=== PATIENT | female | born 1940 | race Caucasian/White ===

== ENCOUNTER → 2017-01-29 | Outpatient (REF) | payer OTHER ==
[2017-01-29 12:42] LABS: MEAN CORPUSCULAR HGB CONC 32.5 g/dl (32.0-36.5); MEAN CORPUSCULAR VOLUME 95.2 fl (80.0-96.0); RED CELL DISTRIBUTION WIDTH 13.1 % (11.5-14.5); RETICULOCYTE % ADVIA2120 1.5 % (0.5-1.5); WHITE BLOOD COUNT 7.2 K/mm3 (4.0-10.0)
[2017-01-29 13:04] LABS: FOLATE 20.4 NG/ML (>5.4)
[2017-01-29 13:10] LABS: ALBUMIN 3.4 GM/DL (3.2-5.2); BILIRUBIN,TOTAL 0.4 MG/DL (0.2-1.0); CALCIUM LEVEL 8.7 MG/DL (8.8-10.2); CREATININE FOR GFR 1.52 MG/DL (0.55-1.02); GLOMERULAR FILTRATION RATE 35.2 (>39); PERCENT SATURATION 20.4 % (13.2-37.4); POTASSIUM SERUM 4.4 MEQ/L (3.5-5.1); TOTAL PROTEIN 6.8 GM/DL (6.4-8.2)
== END ==
LOC: M SFHCADAM 09:45
PROVIDERS: ATTEND Physician Assistant
DX: E11.29 Type 2 diabetes mellitus with other diabetic kidney complication (principal); D63.1 Anemia in chronic kidney disease; R80.9 Proteinuria, unspecified; E55.9 Vitamin D deficiency, unspecified; N18.9 Chronic kidney disease, unspecified

== ENCOUNTER → 2017-02-28 | Outpatient (REF) | payer OTHER ==
[2017-02-28 13:44] LABS: CALCIUM LEVEL 8.9 MG/DL (8.8-10.2); CREATININE FOR GFR 1.33 MG/DL (0.55-1.02); GLOMERULAR FILTRATION RATE 41.1 (>39); POTASSIUM SERUM 4.4 MEQ/L (3.5-5.1)
== END ==
LOC: M SFHCADAM 09:43
PROVIDERS: ATTEND Physician Assistant
DX: N18.3 Chronic kidney disease, stage 3 (moderate) (principal); E53.8 Deficiency of other specified B group vitamins
CPT/HCPCS: 80048; 86256; 96372; J3420

== ENCOUNTER → 2017-04-11 | Outpatient (REF) | payer OTHER | LOC: M LAB REF 17:03 | PROVIDERS: ATTEND Internal Medicine Nephrology | DX: N18.3 Chronic kidney disease, stage 3 (moderate) (principal); E11.22 Type 2 diabetes mellitus with diabetic chronic kidney disease ==

== ENCOUNTER → 2017-04-16 | Outpatient (CLI) | payer OTHER ==
--- NOTE | 2017-04-17 08:03 | REP ---
Clinical: Hematuria. Technique: Transabdominal ultrasound examination using curved array transducer. Findings: The bladder is normal in appearance. No wall thickening or mass lesion identified. Prevoid bladder measures 5.8 x 6.2 x 4.8 cm (113 ml). Postvoid bladder measures 3.5 x 5.5 x 2.2 cm (28 ml). Postvoid residual equals 25%. Impression: 1. Normal appearance of the bladder. 2. Increased postvoid residual volume noted. Signed by Justin Cisneros MD 04/17/2017 07:55 A
== END ==
LOC: M RAD 13:55
PROVIDERS: ATTEND Internal Medicine Nephrology
DX: R31.29 Other microscopic hematuria (principal)

== ENCOUNTER → 2017-05-06 | Outpatient (CLI) | payer OTHER ==
--- NOTE | 2017-05-06 14:18 | REP ---
RENAL ULTRASOUND: Real-time sonographic evaluation of kidneys performed. Both kidneys appear somewhat increased in echotexture suggesting medical renal disease. Right kidney measures 10.8 x 4.7 x 5.1 cm and left kidney 10.8 x 4.2 x 4.3 cm. There is no hydronephrosis bilaterally. A 1.5 cm cortical calcification is seen in the upper pole of the left kidney. A cyst in the mid left kidney measures 1.8 x 1.9 x 1.2 cm and a cyst in the lower pole of the left kidney measures 1.7 x 2.3 x 1.3 cm. A cyst in the lower pole of the right kidney measures 1.8 x 2.1 x 1.9 cm. Urinary bladder is not well distended and not well evaluated. IMPRESSION: Increased echotexture of the kidneys suggests medical renal disease. No hydronephrosis. Bilateral renal cysts. Cortical calcification upper pole left kidney. Signed by Kendall Barker MD 05/06/2017 04:45 P
== END ==
LOC: M RAD 12:09
PROVIDERS: ATTEND Internal Medicine Nephrology
DX: I10 Essential (primary) hypertension (principal); E11.22 Type 2 diabetes mellitus with diabetic chronic kidney disease; N28.1 Cyst of kidney, acquired; N28.89 Other specified disorders of kidney and ureter

== ENCOUNTER → 2017-06-04 | Outpatient (REF) | payer OTHER ==
[2017-06-04 14:09] LABS: MEAN CORPUSCULAR HEMOGLOBIN 32.6 pg (27.0-33.0); MEAN CORPUSCULAR HGB CONC 35.2 g/dl (32.0-36.5); MEAN CORPUSCULAR VOLUME 92.6 fl (80.0-96.0); RED CELL DISTRIBUTION WIDTH 12.8 % (11.5-14.5); WHITE BLOOD COUNT 7.7 K/mm3 (4.0-10.0)
[2017-06-04 20:45] LABS: FOLATE 13.6 NG/ML
[2017-06-04 20:54] LABS: CALCIUM LEVEL 8.7 MG/DL (8.8-10.2); CREATININE FOR GFR 1.46 MG/DL (0.55-1.02); FREE T4 1.19 NG/DL (0.76-1.46); GLOMERULAR FILTRATION RATE 36.9 (>39); POTASSIUM SERUM 4.3 MEQ/L (3.5-5.1)
== END ==
LOC: M SFHCPLAZ 09:45
PROVIDERS: ATTEND Physician Assistant
DX: N18.9 Chronic kidney disease, unspecified (principal); E53.8 Deficiency of other specified B group vitamins; E03.9 Hypothyroidism, unspecified

== ENCOUNTER → 2017-06-13 | Outpatient (REF) | payer OTHER | LOC: M LAB REF 16:41 | PROVIDERS: ATTEND Internal Medicine Nephrology | DX: N18.3 Chronic kidney disease, stage 3 (moderate) (principal); R31.29 Other microscopic hematuria ==

== ENCOUNTER → 2017-07-07 | Outpatient (REF) | payer OTHER | LOC: M SMT 16:53 | PROVIDERS: ATTEND Nurse Practitioner Women's Health | DX: R31.29 Other microscopic hematuria (principal) | CPT/HCPCS: 81001; 87088; 87186; 88108; G0463 ==

== ENCOUNTER → 2017-07-25 | Outpatient (REF) | payer OTHER | LOC: M SMT 17:05 | PROVIDERS: ATTEND Nurse Practitioner Women's Health | DX: N39.0 Urinary tract infection, site not specified (principal) ==

== ENCOUNTER → 2018-01-27 | Outpatient (REF) | payer OTHER ==
[2018-01-27 19:43] LABS: TOTAL PROTEIN,RANDOM URINE 48.4 MG/DL (0.0-12.0)
[2018-01-27 19:43] LABS: CREATININE,RANDOM URINE 58.1 MG/DL
[2018-01-27 20:03] LABS: FERRITIN 134 NG/ML (8-252); IRON (FE) 70 UG/DL (50-170); PERCENT SATURATION 19.8 % (13.2-45.0); TOTAL IRON BINDING CAPACITY 353 UG/DL (250-450)
== END ==
LOC: M LAB REF 16:53
DX: N18.3 Chronic kidney disease, stage 3 (moderate) (principal); R80.9 Proteinuria, unspecified; D64.9 Anemia, unspecified
CPT/HCPCS: 83550

== ENCOUNTER → 2018-06-10 | Outpatient (REF) | payer OTHER ==
[2018-06-10 20:15] LABS: CHOLESTEROL LEVEL 171 MG/DL (<200); CHOLESTEROL RISK RATIO 3.226 (<5); HDL CHOLESTEROL 53 MG/DL (>40); LDL CHOLESTEROL 63 MG/DL (<100); NON-HDL-C 118 MG/DL; TRIGLYCERIDES LEVEL 276 MG/DL (<150)
[2018-06-10 20:19] LABS: FOLATE 16.2 NG/ML
== END ==
LOC: M SFHCADAM 13:47
DX: E03.9 Hypothyroidism, unspecified (principal); E11.29 Type 2 diabetes mellitus with other diabetic kidney complication; E53.8 Deficiency of other specified B group vitamins
CPT/HCPCS: 82746

== ENCOUNTER → 2018-07-07 | Outpatient (REF) | payer OTHER ==
[2018-07-07 22:50] LABS: CREATININE,RANDOM URINE 55.7 MG/DL
== END ==
LOC: M LAB REF 17:05
DX: N18.3 Chronic kidney disease, stage 3 (moderate) (principal); R80.9 Proteinuria, unspecified
CPT/HCPCS: 82570

== ENCOUNTER → 2018-08-12 | Outpatient (REF) | payer OTHER ==
[2018-08-12 19:23] LABS: FREE T4 1.07 NG/DL (0.76-1.46); THYROID STIMULATING HORMONE 2.96 uIU/ML (0.358-3.740)
== END ==
LOC: M SFHCADAM 11:18
PROVIDERS: ATTEND Physician Assistant
DX: E03.9 Hypothyroidism, unspecified (principal)

== ENCOUNTER → 2018-09-11 | Outpatient (REF) | payer OTHER ==
[2018-09-11 20:12] LABS: HEMOGLOBIN A1c 7.6 %
== END ==
LOC: M SFHCADAM 13:24
PROVIDERS: ATTEND Physician Assistant
DX: I11.9 Hypertensive heart disease without heart failure (principal); I13.10 Hypertensive heart and chronic kidney disease without heart failure, with stage 1 through stage 4 chronic kidney disease, or unspecified chronic kidney disease; N18.3 Chronic kidney disease, stage 3 (moderate); D63.1 Anemia in chronic kidney disease; E03.9 Hypothyroidism, unspecified; E11.29 Type 2 diabetes mellitus with other diabetic kidney complication
CPT/HCPCS: 83036; G0463

== ENCOUNTER → 2019-06-01 | Outpatient (REF) | payer MEDICARE, OTHER ==
[2019-06-01 20:33] LABS: CHOLESTEROL RISK RATIO 3.392 (<5); FREE T4 1.09 NG/DL (0.76-1.46); THYROID STIMULATING HORMONE 5.48 uIU/ML (0.358-3.740)
[2019-06-01 21:44] LABS: HEMOGLOBIN A1c 7.8 %
== END ==
LOC: M SFHCADAM 13:55
PROVIDERS: ATTEND Physician Assistant
DX: I11.9 Hypertensive heart disease without heart failure (principal); E11.29 Type 2 diabetes mellitus with other diabetic kidney complication; N18.3 Chronic kidney disease, stage 3 (moderate); E03.9 Hypothyroidism, unspecified

== ENCOUNTER → 2019-11-23 | Outpatient (CLI) | payer MEDICARE ==
--- NOTE | 2019-11-24 05:21 | REP ---
Clinical: Heart disease. Technique: PA and lateral. Comparison: 11/09/2014. Findings: Cardiomegaly is suggested. Lung mendoza demonstrate diffuse increased interstitial markings which are likely chronic in nature. No discrete focal consolidation or obvious effusion. No pneumothorax. Skeletal structures intact. Impression: Chronic-appearing changes. If the patient remains symptomatic consider chest CT for further investigation. Electronically Signed by Justin Cisneros MD 11/24/2019 05:13 A
== END ==
LOC: M ADAMS 12:00
PROVIDERS: ATTEND Physician Assistant
DX: I11.9 Hypertensive heart disease without heart failure (principal); N18.3 Chronic kidney disease, stage 3 (moderate); E11.29 Type 2 diabetes mellitus with other diabetic kidney complication; R22.31 Localized swelling, mass and lump, right upper limb
CPT/HCPCS: 71046; 80053; 81001; 83036; 83880; 84439; 84443; 85027; 85379; G0463

== ENCOUNTER → 2019-11-23 | Outpatient (REF) | payer MEDICARE ==
[2019-11-23 14:04] LABS: APPEARANCE, URINE CLOUDY (CLEAR); BACTERIA, URINE AUTO 3+ (NEGATIVE); BILIRUBIN, URINE AUTO NEGATIVE (NEGATIVE); BLOOD, URINE BLOOD 1+ (NEGATIVE); COLOR, URINE YELLOW (YELLOW); GLUCOSE, URINE (UA) AUTO 1+ mg/dL (NEGATIVE); KETONE, URINE AUTO NEGATIVE (NEGATIVE); LEUKOCYTE ESTERASE, URINE AUTO 3+ (NEGATIVE); MUCUS, URINE SMALL (NEGATIVE); NITRITE, URINE AUTO POSITIVE (NEGATIVE); PROTEIN, URINE AUTO 2+ mg/dL (NEGATIVE); RBC, URINE AUTO 7 /HPF (0-3); SPECIFIC GRAVITY URINE AUTO 1.014 (1.002-1.035); SQUAMOUS EPITHELIAL CELL UR AU 0 /HPF (0-6); UROBILINOGEN, URINE AUTO 0.2 mg/dL (0.0-2.0); WBC, URINE AUTO 92 /HPF (0-3)
[2019-11-23 14:26] LABS: HEMATOCRIT 33.9 % (36.0-47.0); HEMOGLOBIN 11.1 g/dl (12.0-15.5); MEAN CORPUSCULAR HEMOGLOBIN 30.6 pg (27.0-33.0); MEAN CORPUSCULAR HGB CONC 32.7 g/dl (32.0-36.5); MEAN CORPUSCULAR VOLUME 93.4 fl (80.0-96.0); PLATELET COUNT, AUTOMATED 224 10^3/uL (150-450); RED BLOOD COUNT 3.63 10^6/uL (4.00-5.40); WHITE BLOOD COUNT 10.7 10^3/uL (4.0-10.0)
[2019-11-23 14:42] LABS: ALBUMIN 3.3 GM/DL (3.2-5.2); BILIRUBIN,TOTAL 0.4 MG/DL (0.2-1.0); CALCIUM LEVEL 8.8 MG/DL (8.8-10.2); CREATININE FOR GFR 1.72 MG/DL (0.55-1.30); FREE T4 1.35 NG/DL (0.76-1.46); GLOMERULAR FILTRATION RATE 30.4 (>32); POTASSIUM SERUM 4.9 MEQ/L (3.5-5.1); THYROID STIMULATING HORMONE 3.87 uIU/ML (0.358-3.740); TOTAL PROTEIN 7.1 GM/DL (6.4-8.2)
[2019-11-23 16:30] LABS: HEMOGLOBIN A1c 7.6 %
== END ==
LOC: M SFHCADAM 11:47
PROVIDERS: ATTEND Physician Assistant
DX: E11.29 Type 2 diabetes mellitus with other diabetic kidney complication (principal); I11.9 Hypertensive heart disease without heart failure; N18.3 Chronic kidney disease, stage 3 (moderate); R22.31 Localized swelling, mass and lump, right upper limb

== ENCOUNTER → 2019-11-29 | Outpatient (CLI) | payer MEDICARE ==
--- NOTE | 2019-11-29 16:06 | REP ---
Bilateral lower extremity Duplex Doppler venous ultrasound: Real time compression and duplex Doppler interrogation of the bilateral lower extremity deep venous system is performed. Bilaterally, the common femoral, superficial femoral and popliteal veins are fully compressible with transducer pressure and demonstrate normal spontaneous and phasic flow, without evidence of deep venous thrombosis. Impression: No evidence of deep venous thrombosis of the bilateral lower extremity femoral popliteal venous system. Electronically Signed by Kendall Barker MD 11/29/2019 03:58 P
--- NOTE | 2019-11-29 16:07 | REP ---
Right upper extremity duplex Doppler venous ultrasound. Real time compression and duplex Doppler evaluation of the right upper extremity deep venous system is performed. The right subclavian, jugular, axillary, brachial, basilic and cephalic veins are fully compressible where accessible with transducer pressure, and demonstrate no intraluminal thrombus and normal venous waveforms. There is no evidence of deep venous thrombosis. Impression: No evidence of deep venous thrombosis of the right upper extremity deep vein system. Electronically Signed by Kendall Barker MD 11/29/2019 03:59 P
== END ==
LOC: M RAD 14:46
PROVIDERS: ATTEND Physician Assistant
DX: M79.89 Other specified soft tissue disorders (principal)

== ENCOUNTER → 2019-11-30 | Outpatient (REF) | payer MEDICARE ==
[2019-11-30 17:11] LABS: CREATININE FOR GFR 2.17 MG/DL (0.55-1.30); GLOMERULAR FILTRATION RATE 23.2 (>32); POTASSIUM SERUM 4.7 MEQ/L (3.5-5.1)
== END ==
LOC: M SFHCADAM 15:11
PROVIDERS: ATTEND Physician Assistant
DX: N18.3 Chronic kidney disease, stage 3 (moderate) (principal)
CPT/HCPCS: 80048; G0463

== ENCOUNTER → 2019-12-08 | Outpatient (REF) | payer MEDICARE | LOC: M LAB REF 13:02 | PROVIDERS: ATTEND Internal Medicine Nephrology | DX: N39.0 Urinary tract infection, site not specified (principal) ==

== ENCOUNTER → 2019-12-27 | Outpatient (REF) | payer MEDICARE | LOC: M LAB REF 16:57 | PROVIDERS: ATTEND Internal Medicine Nephrology | DX: N39.0 Urinary tract infection, site not specified (principal) ==

== ENCOUNTER → 2019-12-31 | Outpatient (CLI) | payer MEDICARE ==
--- NOTE | 2019-12-31 17:18 | REP ---
HISTORY: History of renal calculi and kidney disease. COMPARISON: There are no prior CT examinations of the abdomen or pelvis for comparison. The examination is somewhat limited by the lack of intravenous contrast. There are multiple nodules in the lung bases, right greater than left, with the largest measuring 6 mm in the right lower lobe. There are no pleural or pericardial effusions. Limited evaluation of the solid intraabdominal organs show hepatic and splenic densities to be within normal limits, there is a nodular surface to the hepatic edge. There is also an abnormal caudate to left lobe liver ratio. There is no gross intrahepatic or extrahepatic ductal dilatation. There is cholelithiasis. The spleen, pancreas, and adrenal glands are within normal limits. There are multiple low density areas seen in each renal cortex difficult to evaluate without contrast. The largest on the right measures approximately 2.3 cm and has near water density Hounsfield unit readings. The largest on the left measures approximately 2.2 cm and has near water density Hounsfield unit readings as well. Other denser nodule or nodule-like areas are seen bilaterally. In addition, there is a large calcification in the superior pole of the left kidney. Limited evaluation of the abdominal aorta and periaortic regions show no gross abnormalities. There is calcific atherosclerotic change. No free fluid or free air is seen in the abdomen or pelvis. Limited evaluation of the intra-abdominal and intrapelvic bowel loops and their mesenteries show no gross abnormalities. Bone window technique throughout the exam shows the osseous structures to be within normal limits for the patient's age of 79 years. IMPRESSION: 1. Liver as described above. When compared to the imaged upper abdomen on the latest chest CT of 06/25/2017, the finding appears to have worsened. Cirrhosis cannot be ruled out. 2. There is cholelithiasis. 3. Bilateral renal findings as described above and although the larger areas likely represent simple cysts that cannot be said with complete certainty without further evaluation. If the patient is not a candidate for intravenous contrast then I would recommend pre and post gadolinium enhanced renal MRI for complete evaluation of each kidney. 4. Multiple lung based nodules, however, when compared to the prior chest CT of 06/25/2017, all nodules are stable. 5. Other findings as described above. Electronically Signed by Kal Adler DO 12/31/2019 05:38 P
== END ==
LOC: M RAD 12:33
PROVIDERS: ATTEND Internal Medicine Nephrology
DX: N20.0 Calculus of kidney (principal); N18.4 Chronic kidney disease, stage 4 (severe)

== ENCOUNTER → 2020-07-20 | Outpatient (REF) | payer MEDICARE ==
[2020-07-20 12:52] LABS: INR 1.03; PROTHROMBIN TIME 13.7 SECONDS (12.5-14.3)
[2020-07-20 12:59] LABS: HEMOGLOBIN A1c 7.3 %
[2020-07-20 13:05] LABS: CALCIUM LEVEL 9.3 MG/DL (8.8-10.2); CREATININE FOR GFR 1.8 MG/DL (0.55-1.30); GLOMERULAR FILTRATION RATE 28.7 (>32); POTASSIUM SERUM 4.4 MEQ/L (3.5-5.1)
[2020-07-20 13:06] LABS: ALBUMIN 3.2 GM/DL (3.2-5.2); BILIRUBIN,TOTAL 0.4 MG/DL (0.2-1.0); TOTAL PROTEIN 7.1 GM/DL (6.4-8.2)
[2020-07-20 13:14] LABS: CHOLESTEROL RISK RATIO 3.568 (<5); FREE T4 1.12 NG/DL (0.76-1.46); THYROID STIMULATING HORMONE 3.67 uIU/ML (0.358-3.740)
[2020-07-20 13:15] LABS: FOLATE 14.2 NG/ML
== END ==
LOC: M SFHCADAM 11:04
PROVIDERS: ATTEND Physician Assistant
DX: E11.29 Type 2 diabetes mellitus with other diabetic kidney complication (principal); E03.9 Hypothyroidism, unspecified; K76.89 Other specified diseases of liver
CPT/HCPCS: 80053; 80061; 82607; 82746; 83036; 84439; 84443; 85610; G0463

== ENCOUNTER → 2021-01-29 | Outpatient (REF) | payer MEDICARE ==
[2021-01-29 19:11] LABS: FOLATE 14.1 NG/ML
== END ==
LOC: M SFHCADAM 13:01
PROVIDERS: ATTEND Physician Assistant
DX: K74.60 Unspecified cirrhosis of liver (principal)

== ENCOUNTER → 2021-02-21 | Outpatient (CLI) | payer MEDICARE ==
--- NOTE | 2021-02-21 10:59 | REP ---
INDICATION: DIFFUSE NODULAR CIRRHOSIS OF LIVER COMPARISON: Correlation with CT dated 12/31/2019 TECHNIQUE: Real time keen scale ultrasound examination using curved array transducer. FINDINGS: Liver is mildly heterogeneous without focal hepatic lesion identified. Pancreas is incompletely evaluated due to interposed bowel gas. The gallbladder demonstrates multiple mobile gallstones without wall thickening or pericholecystic fluid.. No biliary ductal dilatation is appreciated and the common bile duct measures 5.8 mm diameter. Right kidney measures 10.9 x 5.0 x 4.3 cm with cortical thinning and 2.8 cm midpole cyst and 0.8 cm lower pole cyst. No hydronephrosis. No ascites in the visualized right upper quadrant. IMPRESSION: 1. Coarsened hepatic echotexture consistent with the given history of cirrhosis. No focal hepatic lesion. 2. Cholelithiasis. 3. Small simple renal cysts. <Electronically signed by Justin Cisneros > 02/21/21 [id number]
== END ==
LOC: M RAD 10:21
PROVIDERS: ATTEND Physician Assistant
DX: K74.60 Unspecified cirrhosis of liver (principal)

== ENCOUNTER → 2021-06-14 | Outpatient (REF) | payer MEDICARE ==
[2021-06-14 18:36] LABS: FREE T4 1.05 NG/DL (0.76-1.46); THYROID STIMULATING HORMONE 4.84 uIU/ML (0.358-3.740)
== END ==
LOC: M LAB REF 17:30
PROVIDERS: ATTEND Nurse Practitioner Family
DX: E03.9 Hypothyroidism, unspecified (principal)

== ENCOUNTER → 2021-08-28 | Outpatient (REF) | payer MEDICARE ==
[2021-08-28 17:11] LABS: HEMOGLOBIN A1c 7.1 %
[2021-08-28 17:43] LABS: ALBUMIN 3.2 GM/DL (3.2-5.2); BILIRUBIN,TOTAL 0.5 MG/DL (0.2-1.0); CALCIUM LEVEL 9.2 MG/DL (8.8-10.2); CREATININE FOR GFR 1.74 MG/DL (0.55-1.30); FREE T4 1.14 NG/DL (0.76-1.46); GLOMERULAR FILTRATION RATE 29.8 (>32); POTASSIUM SERUM 4.5 MEQ/L (3.5-5.1); THYROID STIMULATING HORMONE 3.6 uIU/ML (0.358-3.740)
== END ==
LOC: M SFHCADAM 11:43
PROVIDERS: ATTEND Physician Assistant
DX: K74.60 Unspecified cirrhosis of liver (principal); E03.9 Hypothyroidism, unspecified; E11.29 Type 2 diabetes mellitus with other diabetic kidney complication
CPT/HCPCS: 80053; 83036; 84439; 84443; G0463

== ENCOUNTER → 2022-08-22 | Outpatient (REF) | payer MEDICARE ==
[2022-08-22 18:35] LABS: FREE T4 1.31 NG/DL (0.89-1.76)
[2022-08-22 18:36] LABS: TOTAL 25(OH) VITAMIN D 24.5 NG/ML (20.0-100.0)
[2022-08-22 18:37] LABS: VITAMIN B12 LEVEL 471 PG/ML (211-911)
[2022-08-22 18:42] LABS: FOLATE > 24.0 NG/ML (>5.4)
[2022-08-22 20:50] LABS: HEMOGLOBIN A1c 6.9 % (4.0-6.0)
== END ==
LOC: M SFHCADAM 13:02
PROVIDERS: ATTEND Physician Assistant
DX: I11.9 Hypertensive heart disease without heart failure (principal); E11.29 Type 2 diabetes mellitus with other diabetic kidney complication; E53.8 Deficiency of other specified B group vitamins; E03.9 Hypothyroidism, unspecified; N18.31 Chronic kidney disease, stage 3a

== ENCOUNTER → 2023-01-16 | Outpatient (CLI) | payer MEDICARE | LOC: M RAD 07:55 | PROVIDERS: ATTEND Physician Assistant | DX: K74.60 Unspecified cirrhosis of liver (principal) ==

== ENCOUNTER 2023-03-18 11:07 | Inpatient (IN) | payer MEDICARE ==
[~2023-03-18] VITALS: Ht 160 cm; Wt 83.0 kg
[~2023-03-18 11:07] MED LIST: ATORVASTATIN 20 MG TAB PO SCH
[2023-03-18] MEDS ORDERED: METOPROLOL TART 25 MG TABLET PO ONE (11:35)
[2023-03-18 11:49] LABS: BASO % 0.2 % (0.0-1.0); EOS % 0.1 % (0.0-3.0); HEMATOCRIT 32.4 % (36.0-47.0); HEMOGLOBIN 10.7 g/dl (12.0-15.5); LYMPH # 0.5 10^3/uL (1.5-5.0); LYMPH % 2.8 % (24.0-44.0); MEAN CORPUSCULAR HEMOGLOBIN 31.4 pg (27.0-33.0); MONO % 6.1 % (2.0-8.0); NEUTROPHILS # 14.9 10^3/uL (1.5-8.5); NEUTROPHILS % 89.7 % (36.0-66.0); PLATELET COUNT, AUTOMATED 245 10^3/uL (150-450); RED BLOOD COUNT 3.41 10^6/uL (4.00-5.40); WHITE BLOOD COUNT 16.7 10^3/uL (4.0-10.0)
[2023-03-18] MEDS ORDERED: GLIM2TAB29 PO (12:01)
[2023-03-18] MEDS ORDERED: POTA-150 PO (12:01)
[2023-03-18] MEDS ORDERED: FEBU80TA PO (12:01)
[2023-03-18] MEDS ORDERED: SITA50TAB PO (12:01)
[2023-03-18] MEDS ORDERED: TORS20TA2 PO (12:01)
[2023-03-18] MEDS ORDERED: PARI1CAP21 PO (12:01)
[2023-03-18] MEDS ORDERED: ALBU8.5H PO (12:01)
[2023-03-18 12:04] LABS: INR 1.24; PROTHROMBIN TIME 15.9 SECONDS (12.5-14.5)
[2023-03-18] MEDS: METOPROLOL 5 MG/5 ML VIAL IV SCH ×3 (12:07→12:20)
[2023-03-18 12:19] LABS: LIPASE 19 U/L (12-53)
[2023-03-18 12:21] LABS: ALBUMIN 2.5 G/DL (3.2-5.2); ALKALINE PHOSPHATASE 74 U/L (46-116); ALT/SGPT < 9 U/L (7.0-40); AST/SGOT 22 U/L (<34); BILIRUBIN,DIRECT 0.2 MG/DL (<0.4); BILIRUBIN,TOTAL 0.5 MG/DL (0.3-1.2); BLOOD UREA NITROGEN 65 MG/DL (9-23); CALCIUM LEVEL 8.2 MG/DL (8.3-10.6); CARBON DIOXIDE LEVEL 20 MMOL/L (20-31); CHLORIDE LEVEL 104 MMOL/L (98-107); CREATININE FOR GFR 2.54 MG/DL (0.55-1.30); GLOMERULAR FILTRATION RATE 19.2 (>32); GLUCOSE, FASTING 316 MG/DL (74-106); POTASSIUM SERUM 4.1 MMOL/L (3.5-5.1); SODIUM LEVEL 137 MMOL/L (136-145); TOTAL PROTEIN 5.8 G/DL (5.7-8.2)
[2023-03-18 12:24] LABS: THYROID STIMULATING HORMONE 3.676 uIU/ML (0.55-4.78); THYROXINE (T4) 8.7 UG/DL (4.5-10.9)
[2023-03-18 12:25] LABS: FREE THYROXINE INDEX 3.7 % (1.3-4.8); T UPTAKE 42.8 % (22.5-37.0); THYROID STIMULATING HORMONE 5.489 uIU/ML (0.55-4.78)
[2023-03-18 13:43] LABS: APPEARANCE, URINE CLOUDY (CLEAR); BACTERIA, URINE AUTO 2+ (NEGATIVE); BILIRUBIN, URINE AUTO NEGATIVE (NEGATIVE); BLOOD, URINE BLOOD 1+ (NEGATIVE); COLOR, URINE AMBER (YELLOW); GLUCOSE, URINE (UA) AUTO 2+ mg/dL (NEGATIVE); KETONE, URINE AUTO NEGATIVE (NEGATIVE); LEUKOCYTE ESTERASE, URINE AUTO 3+ (NEGATIVE); MUCUS, URINE SMALL (NEGATIVE); NITRITE, URINE AUTO NEGATIVE (NEGATIVE); PROTEIN, URINE AUTO 3+ mg/dL (NEGATIVE); RBC, URINE AUTO 10 /HPF (0-3); SPECIFIC GRAVITY URINE AUTO 1.019 (1.002-1.035); SQUAMOUS EPITHELIAL CELL UR AU 7 /HPF (0-6); UROBILINOGEN, URINE AUTO 0.2 mg/dL (0.0-2.0); WBC, URINE AUTO TNTC /HPF (0-3)
[2023-03-18] MEDS ORDERED: FUROSEMIDE 100MG/10ML VIAL IV ONE (13:45)
[2023-03-18] MEDS ORDERED: MED REC IN PROGRESS XX SCH (15:00)
[2023-03-18] MEDS ORDERED: HOME MED LIST COMPLETE! XX SCH (15:30)
[2023-03-18] MEDS ORDERED: ACETAMINOPHEN TAB 650MG DOSE (2X325MG) PO PRN (15:40)
[2023-03-18] MEDS ORDERED: GLUCOSE 4GM CHEW TABLET PO PRN (15:45)
[2023-03-18] MEDS ORDERED: GLUCAGON INJ 1MG VIAL SC PRN (15:45)
[2023-03-18] MEDS ORDERED: DEXTROSE 50% 50ML SYRINGE IV PRN (15:45)
[2023-03-18] MEDS ORDERED: HEPARIN SOD (PORCINE) 5000UNITS/ML 1ML VIAL/SYRINGE IV STA (17:14)
[2023-03-18] MEDS ORDERED: ASPIRIN 325 MG TAB PO ONE (17:30)
[2023-03-18] MEDS ORDERED: HEPARIN SOD (PORCINE) 5000UNITS/ML 1ML VIAL/SYRINGE IV PRN (17:40)
[2023-03-18] MEDS ORDERED: HEPARIN DRIP 25,000 UNITS in IV 1 EA IV SCH (17:40)
[2023-03-18] MEDS: FUROSEMIDE 40MG/4ML VIAL IV SCH (17:57)
[2023-03-18] MEDS: INSULIN LISPRO (NovoLOG) PER UNIT SC SCH ×2 (17:57→21:00)
[2023-03-18] MEDS ORDERED: HEPARIN SOD (PORCINE) 5000UNITS/ML 1ML VIAL/SYRINGE IV ONE (18:00)
[2023-03-18] MEDS ORDERED: ENOXAPARIN 40MG/0.4ML SYRINGE (J1650 PER 10MG) SC SCH (18:00)
[2023-03-18] MEDS ORDERED: METOPROLOL TART 25 MG TABLET PO SCH (18:00)
[2023-03-18] MEDS: FEBUXOSTAT 40 MG TABLET (ULORIC) PO SCH (18:00)
[2023-03-18 18:32] VITALS: BP 154/84; TEMP 97.9; O2SAT 98
[2023-03-18 20:00] VITALS: O2SAT 95
[2023-03-18 20:30] VITALS: BP 112/66; TEMP 96.8; O2SAT 97
[2023-03-18 23:00] VITALS: O2SAT 97
[2023-03-19] VITALS (35 sets, daily range): BP systolic 126–150; BP diastolic 63–88; TEMP 96.1–98; O2SAT 85–100
[2023-03-19] MEDS: METOPROLOL TART 50 MG TAB PO SCH ×3 (01:18→17:39)
[2023-03-19 03:40] LABS: BASO # 0.1 10^3/uL (0.0-0.2); BASO % 0.4 % (0.0-1.0); EOS # 0.2 10^3/uL (0.0-0.5); EOS % 1.4 % (0.0-3.0); HEMATOCRIT 32.4 % (36.0-47.0); HEMOGLOBIN 10.2 g/dl (12.0-15.5); LYMPH # 1.9 10^3/uL (1.5-5.0); LYMPH % 11.5 % (24.0-44.0); MEAN CORPUSCULAR HEMOGLOBIN 30.4 pg (27.0-33.0); MEAN CORPUSCULAR HGB CONC 31.5 g/dl (32.0-36.5); MEAN CORPUSCULAR VOLUME 96.4 fl (80.0-96.0); MONO % 9.8 % (2.0-8.0); NEUTROPHILS # 12.3 10^3/uL (1.5-8.5); PLATELET COUNT, AUTOMATED 249 10^3/uL (150-450); RED BLOOD COUNT 3.36 10^6/uL (4.00-5.40); WHITE BLOOD COUNT 16.2 10^3/uL (4.0-10.0)
[2023-03-19 03:59] LABS: MONO # 1.6 10^3/uL (0.0-0.8)
[2023-03-19 04:06] LABS: INR 1.21; PROTHROMBIN TIME 15.6 SECONDS (12.5-14.5)
[2023-03-19 04:07] LABS: PARTIAL THROMBOPLASTIN TIME 90.8 SECONDS (24.8-34.2)
[2023-03-19 04:40] LABS: CALCIUM LEVEL 8.8 MG/DL (8.3-10.6); CHOLESTEROL RISK RATIO 3.18 (<5); CK-MB VALUE MASS 9.1 NG/ML (<3.6); CREATININE FOR GFR 3.03 MG/DL (0.55-1.30); GLOMERULAR FILTRATION RATE 15.6 (>32); HDL CHOLESTEROL 39.9 MG/DL (>40); LDL CHOLESTEROL 57.7 MG/DL (<100); MAGNESIUM LEVEL 2.2 MG/DL (1.8-2.4); MB/CK RELATIVE INDEX 5.22 (< OR =4); NON-HDL-C 87.1 MG/DL; POTASSIUM SERUM 4.4 MMOL/L (3.5-5.1)
[2023-03-19] MEDS: INSULIN LISPRO (NovoLOG) PER UNIT SC SCH ×4 (07:30→20:32)
[2023-03-19] MEDS ORDERED: ASPIRIN 81MG CHEW TABLET PO SCH (09:00)
[2023-03-19 10:05] LABS: INR 0.99; PROTHROMBIN TIME 13.3 SECONDS (12.5-14.5)
[2023-03-19 10:06] LABS: PARTIAL THROMBOPLASTIN TIME 50.7 SECONDS (24.8-34.2)
[2023-03-19] MEDS: FUROSEMIDE 40MG/4ML VIAL IV SCH (10:08)
[2023-03-19 10:19] LABS: C REACTIVE PROTEIN QUANTITATIV 15.2 MG/DL (<1.0)
[2023-03-19 10:35] LABS: PROCALCITONIN 1.26 ng/ml
[2023-03-19] MEDS: FEBUXOSTAT 40 MG TABLET (ULORIC) PO SCH (17:38)
[2023-03-19] MEDS: RIVAROXABAN 15MG TAB (XARELTO) PO SCH (17:39)
[2023-03-19 19:21] LABS: INR 1.35; PROTHROMBIN TIME 16.9 SECONDS (12.5-14.5)
[2023-03-20] VITALS (29 sets, daily range): BP systolic 117–150; BP diastolic 69–90; TEMP 96.1–97.6; O2SAT 89–100
[2023-03-20] MEDS: METOPROLOL TART 50 MG TAB PO SCH (05:41)
[2023-03-20 06:32] LABS: BASO # 0.1 10^3/uL (0.0-0.2); BASO % 0.5 % (0.0-1.0); EOS # 0.4 10^3/uL (0.0-0.5); EOS % 2.6 % (0.0-3.0); HEMATOCRIT 33.6 % (36.0-47.0); HEMOGLOBIN 10.7 g/dl (12.0-15.5); LYMPH # 1.2 10^3/uL (1.5-5.0); LYMPH % 8.3 % (24.0-44.0); MEAN CORPUSCULAR HEMOGLOBIN 30.5 pg (27.0-33.0); MEAN CORPUSCULAR HGB CONC 31.8 g/dl (32.0-36.5); MEAN CORPUSCULAR VOLUME 95.7 fl (80.0-96.0); MONO # 1.5 10^3/uL (0.0-0.8); MONO % 10.6 % (2.0-8.0); NEUTROPHILS # 10.7 10^3/uL (1.5-8.5); NEUTROPHILS % 76.7 % (36.0-66.0); PLATELET COUNT, AUTOMATED 268 10^3/uL (150-450); RED BLOOD COUNT 3.51 10^6/uL (4.00-5.40)
[2023-03-20] MEDS ORDERED: METOPROLOL TART 50 MG TAB PO ONE (06:45)
[2023-03-20 07:04] LABS: CALCIUM LEVEL 8.3 MG/DL (8.3-10.6); CREATININE FOR GFR 2.85 MG/DL (0.55-1.30); GLOMERULAR FILTRATION RATE 16.8 (>32); MAGNESIUM LEVEL 2.2 MG/DL (1.8-2.4); POTASSIUM SERUM 4.2 MMOL/L (3.5-5.1)
[2023-03-20] MEDS: INSULIN LISPRO (NovoLOG) PER UNIT SC SCH ×4 (08:50→20:57)
[2023-03-20 10:33] LABS: INR 2.1; PROTHROMBIN TIME 23.9 SECONDS (12.5-14.5)
[2023-03-20 10:34] LABS: PARTIAL THROMBOPLASTIN TIME 46.2 SECONDS (24.8-34.2)
[2023-03-20] MEDS: RIVAROXABAN 15MG TAB (XARELTO) PO SCH ×3 (18:00→20:56)
[2023-03-20] MEDS: METOPROLOL TARTRATE 100MG TAB PO SCH (18:05)
[2023-03-20] MEDS: FEBUXOSTAT 40 MG TABLET (ULORIC) PO SCH (18:05)
[2023-03-20] MEDS ORDERED: LevoFLOXacin 750 MG TABLET PO ONE (20:00)
[2023-03-21] VITALS (18 sets, daily range): BP systolic 103–125; BP diastolic 57–75; TEMP 96–97.2; O2SAT 91–99
[2023-03-21] MEDS: METOPROLOL TARTRATE 100MG TAB PO SCH ×2 (05:45→17:48)
[2023-03-21 06:06] LABS: BASO # 0.1 10^3/uL (0.0-0.2); BASO % 0.5 % (0.0-1.0); EOS # 0.2 10^3/uL (0.0-0.5); EOS % 1.7 % (0.0-3.0); HEMATOCRIT 33.4 % (36.0-47.0); HEMOGLOBIN 10.4 g/dl (12.0-15.5); LYMPH # 1.2 10^3/uL (1.5-5.0); LYMPH % 8.4 % (24.0-44.0); MEAN CORPUSCULAR HEMOGLOBIN 30.6 pg (27.0-33.0); MEAN CORPUSCULAR HGB CONC 31.1 g/dl (32.0-36.5); MEAN CORPUSCULAR VOLUME 98.2 fl (80.0-96.0); MONO # 1.5 10^3/uL (0.0-0.8); MONO % 10.8 % (2.0-8.0); NEUTROPHILS # 10.4 10^3/uL (1.5-8.5); PLATELET COUNT, AUTOMATED 254 10^3/uL (150-450); WHITE BLOOD COUNT 13.6 10^3/uL (4.0-10.0)
[2023-03-21 06:16] LABS: CREATININE FOR GFR 2.77 MG/DL (0.55-1.30); GLOMERULAR FILTRATION RATE 17.4 (>32); MAGNESIUM LEVEL 2.2 MG/DL (1.8-2.4); POTASSIUM SERUM 4.8 MMOL/L (3.5-5.1)
[2023-03-21] MEDS: INSULIN LISPRO (NovoLOG) PER UNIT SC SCH ×4 (08:15→20:31)
[2023-03-21] MEDS ORDERED: FUROSEMIDE 40MG/4ML VIAL IV ONE (11:35)
[2023-03-21 14:09] LABS: BODY FLUID CULTURE Not indicated. (.); LEGIONELLA ANTIGEN URINE Negative (Negative); ORGANISM ID Not indicated. (.); SPECIMEN SOURCE Urine (.); URINE STREP PNEUMONIAE ANTIGEN Negative (Negative)
[2023-03-21] MEDS: FEBUXOSTAT 40 MG TABLET (ULORIC) PO SCH (17:49)
[2023-03-21] MEDS: RIVAROXABAN 15MG TAB (XARELTO) PO SCH (17:49)
[2023-03-22 06:00] VITALS: BP 135/82; TEMP 97.2; O2SAT 97
[2023-03-22 06:08] LABS: BASO # 0.1 10^3/uL (0.0-0.2); BASO % 0.7 % (0.0-1.0); EOS # 0.1 10^3/uL (0.0-0.5); EOS % 0.8 % (0.0-3.0); HEMATOCRIT 35.1 % (36.0-47.0); HEMOGLOBIN 11.1 g/dl (12.0-15.5); LYMPH # 1.5 10^3/uL (1.5-5.0); LYMPH % 8.7 % (24.0-44.0); MEAN CORPUSCULAR HEMOGLOBIN 30.7 pg (27.0-33.0); MEAN CORPUSCULAR HGB CONC 31.6 g/dl (32.0-36.5); MEAN CORPUSCULAR VOLUME 97.2 fl (80.0-96.0); MONO % 9.9 % (2.0-8.0); NEUTROPHILS % 75.8 % (36.0-66.0); PLATELET COUNT, AUTOMATED 303 10^3/uL (150-450); RED BLOOD COUNT 3.61 10^6/uL (4.00-5.40); WHITE BLOOD COUNT 17.2 10^3/uL (4.0-10.0)
[2023-03-22] MEDS: LevoFLOXacin 500 MG TABLET PO SCH (06:27)
[2023-03-22] MEDS: METOPROLOL TARTRATE 100MG TAB PO SCH ×2 (06:27→17:27)
[2023-03-22 06:34] LABS: MONO # 1.7 10^3/uL (0.0-0.8)
[2023-03-22 06:42] LABS: CALCIUM LEVEL 8.8 MG/DL (8.3-10.6); CREATININE FOR GFR 3.23 MG/DL (0.55-1.30); GLOMERULAR FILTRATION RATE 14.5 (>32); MAGNESIUM LEVEL 2.3 MG/DL (1.8-2.4); POTASSIUM SERUM 4.8 MMOL/L (3.5-5.1)
[2023-03-22] MEDS: INSULIN LISPRO (NovoLOG) PER UNIT SC SCH ×4 (08:32→21:00)
[2023-03-22 12:31] VITALS: O2SAT 97
[2023-03-22 12:32] VITALS: O2SAT 97
[2023-03-22] MEDS: RIVAROXABAN 15MG TAB (XARELTO) PO SCH (17:24)
[2023-03-22] MEDS: FEBUXOSTAT 40 MG TABLET (ULORIC) PO SCH (17:24)
[2023-03-23 05:05] VITALS: BP 91/46; TEMP 97.2; O2SAT 96
[2023-03-23] MEDS: METOPROLOL TARTRATE 100MG TAB PO SCH ×2 (05:51→17:42)
[2023-03-23 06:48] LABS: BASO # 0.1 10^3/uL (0.0-0.2); BASO % 0.7 % (0.0-1.0); EOS # 0.1 10^3/uL (0.0-0.5); EOS % 0.4 % (0.0-3.0); HEMATOCRIT 34.2 % (36.0-47.0); HEMOGLOBIN 10.5 g/dl (12.0-15.5); LYMPH # 1.1 10^3/uL (1.5-5.0); LYMPH % 6.1 % (24.0-44.0); MEAN CORPUSCULAR HGB CONC 30.7 g/dl (32.0-36.5); MEAN CORPUSCULAR VOLUME 97.7 fl (80.0-96.0); MONO # 1.5 10^3/uL (0.0-0.8); MONO % 8.3 % (2.0-8.0); NEUTROPHILS # 14.2 10^3/uL (1.5-8.5); NEUTROPHILS % 79.6 % (36.0-66.0); PLATELET COUNT, AUTOMATED 345 10^3/uL (150-450); WHITE BLOOD COUNT 17.8 10^3/uL (4.0-10.0)
[2023-03-23 07:12] LABS: CALCIUM LEVEL 7.9 MG/DL (8.3-10.6); CREATININE FOR GFR 4.13 MG/DL (0.55-1.30); GLOMERULAR FILTRATION RATE 10.9 (>32); MAGNESIUM LEVEL 2.3 MG/DL (1.8-2.4)
[2023-03-23 07:32] VITALS: BP 112/70
[2023-03-23] MEDS: INSULIN LISPRO (NovoLOG) PER UNIT SC SCH ×4 (08:20→20:42)
[2023-03-23] MEDS ORDERED: FUROSEMIDE 100MG/10ML VIAL IV ONE (12:00)
[2023-03-23] MEDS: CEFDINIR 300 MG CAP (OMNICEF) PO SCH (15:26)
[2023-03-23] MEDS: MIDODRINE 5 MG TAB PO SCH (15:29)
[2023-03-23 16:49] LABS: CALCIUM LEVEL 7.9 MG/DL (8.3-10.6); CREATININE FOR GFR 4.23 MG/DL (0.55-1.30); GLOMERULAR FILTRATION RATE 10.6 (>32); POTASSIUM SERUM 4.8 MMOL/L (3.5-5.1)
[2023-03-23] MEDS: LACTOBACILLUS ACIDOPHILUS CAP (BACID) PO SCH (17:42)
[2023-03-23 20:00] VITALS: BP 126/62; TEMP 97.3; O2SAT 97
[2023-03-23] MEDS: APIXABAN 2.5 MG TAB (ELIQUIS) PO SCH (20:44)
[2023-03-24 05:00] VITALS: BP 123/57; TEMP 97.2; O2SAT 96
[2023-03-24] MEDS: LevoFLOXacin 500 MG TABLET PO SCH (05:49)
[2023-03-24] MEDS: METOPROLOL TARTRATE 100MG TAB PO SCH ×2 (05:50→17:55)
[2023-03-24 07:32] LABS: HEMATOCRIT 32.7 % (36.0-47.0); MEAN CORPUSCULAR HEMOGLOBIN 30.5 pg (27.0-33.0); MEAN CORPUSCULAR HGB CONC 30.6 g/dl (32.0-36.5); MEAN CORPUSCULAR VOLUME 99.7 fl (80.0-96.0); PLATELET COUNT, AUTOMATED 317 10^3/uL (150-450); RED BLOOD COUNT 3.28 10^6/uL (4.00-5.40)
[2023-03-24 07:59] LABS: ATYPICAL LYMPH 1 % (0-5); EOSINOPHILS 2 % (0-3); LYMPHOCYTES 16 % (16-44); MONOCYTES 9 % (0-5); NEUTROPHILS 72 % (28-66); PLATELET ESTIMATE NORMAL (NORMAL); POLYCHROMASIA 1+
[2023-03-24 08:00] LABS: ANISOCYTOSIS 1+
[2023-03-24 08:04] LABS: CALCIUM LEVEL 7.6 MG/DL (8.3-10.6); CREATININE FOR GFR 4.65 MG/DL (0.55-1.30); GLOMERULAR FILTRATION RATE 9.5 (>32); MAGNESIUM LEVEL 2.5 MG/DL (1.8-2.4); POTASSIUM SERUM 5.9 MMOL/L (3.5-5.1)
[2023-03-24] MEDS: APIXABAN 2.5 MG TAB (ELIQUIS) PO SCH ×2 (10:51→21:51)
[2023-03-24] MEDS: INSULIN LISPRO (NovoLOG) PER UNIT SC SCH ×4 (10:51→21:00)
[2023-03-24] MEDS: CEFDINIR 300 MG CAP (OMNICEF) PO SCH (10:51)
[2023-03-24] MEDS: LACTOBACILLUS ACIDOPHILUS CAP (BACID) PO SCH ×2 (10:51→17:50)
[2023-03-24] MEDS: MIDODRINE 5 MG TAB PO SCH ×3 (10:51→17:52)
[2023-03-24] MEDS ORDERED: metOLazone 5 MG TAB PO ONE (12:00)
[2023-03-24] MEDS ORDERED: FUROSEMIDE injection 250 MG in D5W 225 ML IV SCH (13:00)
[2023-03-24] MEDS: PATIROMER SORBITEX CALCIUM 8.4 GM POWDER PACKET (VELTASSA) PO SCH (13:46)
[2023-03-24 14:00] VITALS: BP 122/59; TEMP 97; O2SAT 97
[2023-03-24 14:51] LABS: C REACTIVE PROTEIN QUANTITATIV 5.1 MG/DL (<1.0)
[2023-03-24] MEDS ORDERED: LIDOCAINE 1% MDV 20ML VIAL As Ordered ONE (14:59)
[2023-03-24] MEDS: ONDANSETRON 4MG 2ML VIAL IV SCH ×2 (15:00→21:54)
[2023-03-24 15:04] LABS: PROCALCITONIN 0.7 ng/ml
[2023-03-24] MEDS ORDERED: SODIUM CHLORIDE 0.9% INJ 10 ML SYR IV PRN (18:00)
[2023-03-24] MEDS: SODIUM CHLORIDE 0.9% INJ 10 ML SYR IV SCH (18:00)
[2023-03-24 18:22] LABS: CALCIUM LEVEL 8.2 MG/DL (8.3-10.6); CREATININE FOR GFR 4.99 MG/DL (0.55-1.30); GLOMERULAR FILTRATION RATE 8.8 (>32); POTASSIUM SERUM 5.4 MMOL/L (3.5-5.1)
[2023-03-24 22:00] VITALS: BP 105/72; TEMP 97.3; O2SAT 96
[2023-03-25] MEDS: ONDANSETRON 4MG 2ML VIAL IV SCH ×3 (03:34→18:19)
[2023-03-25 05:21] VITALS: BP 119/62; TEMP 97.2; O2SAT 94
[2023-03-25] MEDS: METOPROLOL TARTRATE 100MG TAB PO SCH ×2 (06:00→18:00)
[2023-03-25 06:01] LABS: HEMATOCRIT 34.3 % (36.0-47.0); HEMOGLOBIN 10.7 g/dl (12.0-15.5); MEAN CORPUSCULAR HEMOGLOBIN 30.3 pg (27.0-33.0); MEAN CORPUSCULAR HGB CONC 31.2 g/dl (32.0-36.5); MEAN CORPUSCULAR VOLUME 97.2 fl (80.0-96.0); RED BLOOD COUNT 3.53 10^6/uL (4.00-5.40); WHITE BLOOD COUNT 24.8 10^3/uL (4.0-10.0)
[2023-03-25] MEDS: SODIUM CHLORIDE 0.9% INJ 10 ML SYR IV SCH (06:03)
[2023-03-25 06:34] LABS: CREATININE FOR GFR 5.58 MG/DL (0.55-1.30); GLOMERULAR FILTRATION RATE 7.7 (>32); MAGNESIUM LEVEL 2.4 MG/DL (1.8-2.4); POTASSIUM SERUM 6.6 MMOL/L (3.5-5.1)
[2023-03-25] MEDS ORDERED: HumuLIN R (REGULAR) INSULIN (NovoLIN R) **100U/ML** PER UNIT IV STA (06:41)
[2023-03-25] MEDS ORDERED: DEXTROSE 50% 50ML SYRINGE IV STA (06:41)
[2023-03-25 06:59] LABS: PLATELET COUNT, AUTOMATED 421 10^3/uL (150-450)
[2023-03-25] MEDS ORDERED: CALCIUM GLUCONATE 1,000 MG in D5W MINI-BAG PLUS 100 ML IV ONE (07:00)
[2023-03-25] MEDS ORDERED: SOD POLYSTYRENE SULFONATE SUSP 15GM 60ML UD PO ONE (07:00)
[2023-03-25 07:04] LABS: LYMPHOCYTES 11 % (16-44); METAMYELOCYTES 2 % (0-0); MONOCYTES 7 % (0-5); MYELOCYTES 1 % (0-0); NEUTROPHILS 76 % (28-66); PLATELET CLUMPS MODERATE AMT; PLATELET ESTIMATE NORMAL (NORMAL)
[2023-03-25 07:09] LABS: HYPOCHROMASIA 1+
[2023-03-25] MEDS ORDERED: VANCOMYCIN HCL 1,000 MG, VIAL MATE ADAPTER 1 EACH in D5W 250 ML IV SCH (08:05)
[2023-03-25] MEDS: LACTOBACILLUS ACIDOPHILUS CAP (BACID) PO SCH ×3 (09:06→18:00)
[2023-03-25] MEDS: MIDODRINE 5 MG TAB PO SCH ×3 (09:06→17:45)
[2023-03-25] MEDS: APIXABAN 2.5 MG TAB (ELIQUIS) PO SCH (09:06)
[2023-03-25] MEDS: INSULIN LISPRO (NovoLOG) PER UNIT SC SCH ×3 (09:06→17:30)
[2023-03-25] MEDS ORDERED: SODIUM CHLORIDE 0.9% 1000ML IV PRN (10:05)
[2023-03-25] MEDS ORDERED: HEPARIN 1,000UNITS/ML 10ML VIAL (FOR RADIOLOGY & DIALYSIS ONLY) IV PRN (10:05)
[2023-03-25] MEDS ORDERED: HEPARIN 1,000UNITS/ML 10ML VIAL (FOR RADIOLOGY & DIALYSIS ONLY) XX SCH (10:05)
[2023-03-25] MEDS ORDERED: FUROSEMIDE 100MG/10ML VIAL IV ONE (11:00)
[2023-03-25] MEDS ORDERED: SODIUM CHLORIDE 0.9% 1000ML IV ONE (11:00)
[2023-03-25] MEDS ORDERED: metOLazone 5 MG TAB PO ONE (11:00)
[2023-03-25 11:47] LABS: HEPATITIS B SURFACE ANTIBODY NEGATIVE (POSITIVE)
[2023-03-25 11:59] LABS: HEPATITIS B SURFACE ANTIGEN NEGATIVE (NEGATIVE)
[2023-03-25 12:12] LABS: INR 2.13; PROTHROMBIN TIME 24.2 SECONDS (12.5-14.5)
[2023-03-25 12:20] LABS: HEPATITIS B CORE ANTIBODY IGM NEGATIVE (NEGATIVE); HEPATITIS C VIRUS ABY INDEX 0.07 INDEX (<0.8)
[2023-03-25] MEDS: PATIROMER SORBITEX CALCIUM 8.4 GM POWDER PACKET (VELTASSA) PO SCH (12:20)
[2023-03-25 12:25] VITALS: BP 118/62
[2023-03-25] MEDS ORDERED: LIDOCAINE W/EPINEPHRINE 1% 20ML VIAL As Ordered ONE (13:57)
[2023-03-25] MEDS ORDERED: HEPARIN 1,000UNITS/ML 10ML VIAL (FOR RADIOLOGY & DIALYSIS ONLY) As Ordered ONE (13:57)
[2023-03-25] MEDS ORDERED: LIDOCAINE 1% MDV 20ML VIAL As Ordered ONE (13:57)
[2023-03-25] MEDS ORDERED: CEFEPIME HCL 1 GM in D5W MINI-BAG PLUS 50 ML IV SCH (16:00)
[2023-03-25 17:42] VITALS: BP 92/58; TEMP 96.5; O2SAT 92
[2023-03-25 18:00] VITALS: BP 80/40
[2023-03-25] MEDS ORDERED: NS 500 ML IV ONE (18:20)
[2023-03-25 18:33] LABS: CK-MB VALUE MASS 2.4 NG/ML (<3.6)
[2023-03-25 18:35] LABS: MB/CK RELATIVE INDEX 3.52 (< OR =4)
[2023-03-25 18:38] LABS: ALBUMIN 2.5 G/DL (3.2-5.2); BILIRUBIN,TOTAL 0.6 MG/DL (0.3-1.2); CALCIUM LEVEL 7.6 MG/DL (8.3-10.6); CREATININE FOR GFR 3.68 MG/DL (0.55-1.30); GLOMERULAR FILTRATION RATE 12.5 (>32); PHOSPHORUS LEVEL 6.8 MG/DL (2.4-5.1); POTASSIUM SERUM 3.9 MMOL/L (3.5-5.1); TOTAL PROTEIN 5.7 G/DL (5.7-8.2)
[2023-03-25] MEDS ORDERED: SCOPOLAMINE 1MG TRANSDERMAL PATCH TOP PRN (18:55)
[2023-03-25] MEDS ORDERED: ACETAMINOPHEN 650MG SUPP PR PRN (18:55)
[2023-03-25] MEDS ORDERED: LORazepam 2 MG/ML 1ML VIAL IV PRN (18:55)
[2023-03-25] MEDS ORDERED: ATROPINE SULFATE 1% OPHTH SOLN 2ML BTL SL PRN (18:55)
[2023-03-25] MEDS: MORPHINE 2 MG/ML 1ML VIAL IV PRN (20:50)
[2023-03-26] MEDS: MORPHINE 2 MG/ML 1ML VIAL IV PRN (00:01)
== END 2023-03-26 02:00 | disposition expired | DRG 308 ==
LOC: EDBD 11:07 → M ED 11:07 → M ED INP 17:08 → M PCU 18:30 → M MSPAV 03-21 18:19 → M PCU 03-25 14:26
PROVIDERS: ADMIT Internal Medicine; ATTEND Internal Medicine
PROC: B246ZZZ Ultrasonography of Right and Left Heart (ICD-10-PCS; 2023-03-19)
PROC: 05HB33Z Insertion of Infusion Device into Right Basilic Vein, Percutaneous Approach (ICD-10-PCS; 2023-03-24)
PROC: 5A1D70Z Performance of Urinary Filtration, Intermittent, Less than 6 Hours Per Day (ICD-10-PCS; 2023-03-25)
PROC: 02HV33Z Insertion of Infusion Device into Superior Vena Cava, Percutaneous Approach (ICD-10-PCS; principal; 2023-03-25 14:00)
DX: I48.91 Unspecified atrial fibrillation (principal); J18.9 Pneumonia, unspecified organism; J96.01 Acute respiratory failure with hypoxia; I50.33 Acute on chronic diastolic (congestive) heart failure; N18.5 Chronic kidney disease, stage 5; J90 Pleural effusion, not elsewhere classified; I31.39 Other pericardial effusion (noninflammatory); N17.9 Acute kidney failure, unspecified; I13.2 Hypertensive heart and chronic kidney disease with heart failure and with stage 5 chronic kidney disease, or end stage renal disease; N39.0 Urinary tract infection, site not specified; J98.11 Atelectasis; Z66 Do not resuscitate; E11.22 Type 2 diabetes mellitus with diabetic chronic kidney disease; D64.9 Anemia, unspecified; H53.9 Unspecified visual disturbance; J45.909 Unspecified asthma, uncomplicated; M10.9 Gout, unspecified; B96.20 Unspecified Escherichia coli [E. coli] as the cause of diseases classified elsewhere; R91.8 Other nonspecific abnormal finding of lung field; R26.89 Other abnormalities of gait and mobility; R57.0 Cardiogenic shock; I25.10 Atherosclerotic heart disease of native coronary artery without angina pectoris; I95.9 Hypotension, unspecified; E02 Subclinical iodine-deficiency hypothyroidism; E87.5 Hyperkalemia; I35.8 Other nonrheumatic aortic valve disorders; K75.81 Nonalcoholic steatohepatitis (NASH); E55.9 Vitamin D deficiency, unspecified; E53.8 Deficiency of other specified B group vitamins; Z90.79 Acquired absence of other genital organ(s); Z98.42 Cataract extraction status, left eye; Z79.84 Long term (current) use of oral hypoglycemic drugs; Z79.899 Other long term (current) drug therapy; Z88.0 Allergy status to penicillin; Z88.2 Allergy status to sulfonamides; Z20.822 Contact with and (suspected) exposure to COVID-19